=== PATIENT | male | born 1960 | race Caucasian/White ===

== ENCOUNTER 2023-12-07 15:34 | Inpatient (IN) | payer OTHER ==
[2023-12-07] MEDS ORDERED: Calcium Carbonate 500 MG ChewTAB PO PRN (16:07)
[2023-12-07] MEDS ORDERED: Senokot S 8.6-50 MG TAB PO PRN (16:07)
[2023-12-07] MEDS ORDERED: Ondansetron PF 4 MG/2 ML Vial IVP PRN (16:07)
[2023-12-07] MEDS ORDERED: Dextrose 5% in Water 1,000 ML IV PRN (16:09)
[2023-12-07] MEDS ORDERED: Glucagon 1 MG/ML KIT IM PRN (16:09)
[2023-12-07] MEDS ORDERED: HumaLOG 300 UNITS/3 ML VIAL SC PRN ×2 (16:09)
[2023-12-07] MEDS ORDERED: Dextrose 50% Abboject 50 ML SYRINGE SLOW IVP PRN (16:09)
[2023-12-07 16:35] VITALS: BMI 44.9
[2023-12-07] MEDS: Albumin 25% 25 GM (100 mL) BOT IVPB SCH (18:05)
[2023-12-07] MEDS: Insulin Regular, Human 100 UNIT/ML 10 ML VIAL SC PRN ×2 (18:06→21:07)
[2023-12-07] MEDS: Rivaroxaban 10 MG TAB PO SCH (18:07)
[2023-12-07] MEDS: Aripiprazole 10 MG TAB PO SCH (20:56)
[2023-12-07] MEDS: levETIRAcetam 500 MG TAB PO SCH (20:56)
[2023-12-07] MEDS: Carbidopa/Levodopa 25-100 mg Tablet PO SCH (20:56)
[2023-12-07] MEDS ORDERED: Insulin Regular, Human 100 UNIT/ML 10 ML VIAL SC SCH (21:00)
[2023-12-07 21:05] LABS: Vancomycin, Random 18.2 ug/mL (See Comment)
[2023-12-07] MEDS: Insulin NPH Human Isophane 100 UNITS/ML (10 ML VIAL) SC SCH (21:42)
[2023-12-07] MEDS: traMADol HCl 50 MG TAB PO PRN (21:42)
[2023-12-07] MEDS: Vancomycin 1 GM in Premix 1 BAG IVPB SCH (22:54)
[2023-12-08 05:32] LABS: #Basophils 0.05 10x3/uL (0.0-0.2); %Basophils 0.7 % (0.0-1.0); %Eosinophils 3.2 % (0.0-10.0); %Lymphocytes 15.1 % (21.0-51.0); %Monocytes 13.3 % (0.0-10.0); %Neutrophils 67.4 % (42.0-75.0); Hematocrit 37.2 % (42.0-52.0); Hemoglobin 11.7 g/dL (14.0-18.0); Mean Corpuscular HGB CONC 31.5 g/dL (32.0-36.0); Mean Corpuscular Hemoglobin 27.6 pg (27.0-31.0); Mean Corpuscular Volume 87.7 fL (78.0-98.0); Platelet Count 221 10x3/uL (130-400); RBC Distribution Width 17.7 % (11.5-14.5); Red Blood Cell (RBC) Count 4.24 mill/uL (4.70-6.10)
[2023-12-08] MEDS: Levothyroxine Sodium 100 MCG TAB PO SCH (05:36)
[2023-12-08] MEDS: Furosemide 40 MG (4 mL) VIAL SLOW IVP SCH (05:36)
[2023-12-08 05:43] LABS: INR-International Normal Ratio 3.4; Prothrombin Time 34.5 sec (12.0-14.7)
[2023-12-08 05:51] LABS: Vancomycin, Random 19.6 ug/mL (See Comment)
[2023-12-08 07:00] LABS: ALT (SGPT) 6 U/L (8-55); AST (SGOT) 29 U/L (5-34); Albumin 3.6 g/dL (3.4-4.8); Alkaline Phosphatase 107 U/L (40-110); Anion Gap 14 mmol/L (10-20); BUN (Urea Nitrogen) 25 mg/dL (8.4-25.7); Bilirubin, Total 1.3 mg/dL (0.2-1.2); Calc. Creatinine Clearance 118 mL/min (70-130); Calcium 9.5 mg/dL (7.8-10.44); Carbon Dioxide 30 mmol/L (23-31); Chloride 99 mmol/L (98-107); Estimated GFR 87; Globulin 3.8 g/dL (2.4-3.5); Glucose 164 mg/dL (80-115); Magnesium 1.6 mg/dL (1.6-2.6); Potassium 3.6 mmol/L (3.5-5.1); Protein, Total 7.4 g/dL (5.8-8.1); Sodium 139 mmol/L (136-145)
[2023-12-08] MEDS: Empagliflozin 10 MG TAB PO SCH (10:34)
[2023-12-08] MEDS: pyridOXINE 50 MG (B6) TAB PO SCH (10:34)
[2023-12-08] MEDS: DULoxetine 60 MG CAP PO SCH (10:34)
[2023-12-08] MEDS: Thiamine 100 MG TAB PO SCH (10:34)
[2023-12-08] MEDS: Aspirin 81 mg Enteric Coated Tablet PO SCH (10:35)
[2023-12-08] MEDS: Acetaminophen 325 MG TAB PO PRN (14:26)
[2023-12-08] MEDS: Insulin NPH Human Isophane 100 UNITS/ML (10 ML VIAL) SC SCH (14:45)
[2023-12-08 16:50] VITALS: BMI 36.1
[2023-12-08] MEDS ORDERED: Rivaroxaban 10 MG TAB PO SCH (17:00)
[2023-12-08] MEDS: Rivaroxaban 10 MG TAB PO SCH (18:02)
[2023-12-08] MEDS: Vancomycin (BATCH) 1.25 GM in Premix 1 BAG IVPB SCH (23:51)
[2023-12-09 04:42] LABS: Anion Gap 16 mmol/L (10-20); BUN (Urea Nitrogen) 28 mg/dL (8.4-25.7); Calc. Creatinine Clearance 111 mL/min (70-130); Calcium 9.4 mg/dL (7.8-10.44); Carbon Dioxide 29 mmol/L (23-31); Chloride 101 mmol/L (98-107); Estimated GFR 81; Glucose 80 mg/dL (80-115); Potassium 3.8 mmol/L (3.5-5.1); Sodium 142 mmol/L (136-145)
[2023-12-09 04:46] LABS: Vancomycin, Random 24.5 ug/mL (See Comment)
[2023-12-10] MEDS: Vancomycin 1 GM in Premix 1 BAG IVPB SCH
[2023-12-10 04:43] LABS: #Basophils 0.08 10x3/uL (0.0-0.2); %Basophils 0.7 % (0.0-1.0); %Lymphocytes 15.2 % (21.0-51.0); %Monocytes 9.7 % (0.0-10.0); %Neutrophils 70.8 % (42.0-75.0); Hematocrit 44.6 % (42.0-52.0); Hemoglobin 14.3 g/dL (14.0-18.0); Mean Corpuscular HGB CONC 32.1 g/dL (32.0-36.0); Mean Corpuscular Volume 87.3 fL (78.0-98.0); Mean Platelet Volume 11.4 fL (7.4-10.4); Platelet Count 289 10x3/uL (130-400); RBC Distribution Width 17.6 % (11.5-14.5); Red Blood Cell (RBC) Count 5.11 mill/uL (4.70-6.10)
[2023-12-10 04:58] LABS: Vancomycin, Random 24.7 ug/mL (See Comment)
[2023-12-10 04:59] LABS: Anion Gap 20 mmol/L (10-20); BUN (Urea Nitrogen) 29 mg/dL (8.4-25.7); Calc. Creatinine Clearance 122 mL/min (70-130); Calcium 9.5 mg/dL (7.8-10.44); Carbon Dioxide 29 mmol/L (23-31); Chloride 96 mmol/L (98-107); Estimated GFR 90; Glucose 59 mg/dL (80-115); Potassium 4.1 mmol/L (3.5-5.1); Sodium 141 mmol/L (136-145)
[2023-12-10 21:35] VITALS: BP 124/78; TEMP 97.9
== END 2023-12-10 20:10 | DRG 291 ==
LOC: EEVIPCON 15:34 → 2NO 15:34
PROVIDERS: ADMIT Internal Medicine; ATTEND Internal Medicine
DX: I11.0 Hypertensive heart disease with heart failure (principal); I50.33 Acute on chronic diastolic (congestive) heart failure; J96.01 Acute respiratory failure with hypoxia; L03.119 Cellulitis of unspecified part of limb; F25.9 Schizoaffective disorder, unspecified; E03.9 Hypothyroidism, unspecified; E78.5 Hyperlipidemia, unspecified; E11.9 Type 2 diabetes mellitus without complications; I25.10 Atherosclerotic heart disease of native coronary artery without angina pectoris; G40.909 Epilepsy, unspecified, not intractable, without status epilepticus; I48.91 Unspecified atrial fibrillation; Z95.810 Presence of automatic (implantable) cardiac defibrillator
CPT/HCPCS: 36415; 36416; 71045; 80048; 80053; 80202; 81001; 83605; 83735; 83880; 84145; 84484; 85025; 85610; 87040; 93005; 93798; 96374; 96375; 97139; J1815; J1940; J2543; J3370; J3370-JW; J7030; P9047

== ENCOUNTER 2024-04-24 06:45 | Inpatient (IN) | payer OTHER ==
[2024-04-24] MEDS ORDERED: Ondansetron PF 4 MG/2 ML Vial IVP PRN (08:26)
[2024-04-24] MEDS ORDERED: Docusate 100 MG CAP PO PRN (08:34)
[2024-04-24] MEDS ORDERED: Polyethylene Glycol 3350 17 GM Packet PO PRN (08:34)
[2024-04-24] MEDS ORDERED: Dextrose 50% Abboject 50 ML SYRINGE SLOW IVP PRN (08:49)
[2024-04-24] MEDS ORDERED: Glucagon 1 MG/ML KIT IM PRN (08:49)
[2024-04-24] MEDS ORDERED: Dextrose 5% in Water 1,000 ML IV PRN (08:49)
[2024-04-24] MEDS: Thiamine 100 MG TAB PO SCH (09:22)
[2024-04-24] MEDS: Lisinopril 2.5 MG TAB PO SCH (09:23)
[2024-04-24] MEDS: pyridOXINE 50 MG (B6) TAB PO SCH (09:23)
[2024-04-24] MEDS: DULoxetine 60 MG CAP PO SCH (09:23)
[2024-04-24] MEDS: levETIRAcetam 500 MG TAB PO SCH (09:23)
[2024-04-24] MEDS: Carbidopa/Levodopa 25-100 mg Tablet PO SCH (09:23)
[2024-04-24] MEDS: Empagliflozin 10 MG TAB PO SCH (09:23)
[2024-04-24] MEDS: Acetaminophen 325 MG TAB PO PRN (09:23)
[2024-04-24] MEDS: Carvedilol 6.25 MG TAB PO SCH ×2 (09:23→16:47)
[2024-04-24] MEDS: Saccharomyces boulardii 250 MG CAP PO SCH (09:24)
[2024-04-24] MEDS: Famotidine 20 MG TAB PO SCH (09:24)
[2024-04-24 10:38] LABS: Troponin I 0.019 ng/mL (< 0.028)
[2024-04-24] MEDS: Furosemide 40 MG (4 mL) VIAL SLOW IVP SCH (13:01)
[2024-04-24] MEDS: Insulin Lispro 100 UNIT/ML 10 ML VIAL SC PRN (13:02)
[2024-04-24] MEDS: HYDROcodone/Acetaminophen 10/325 mg Tablet PO PRN (16:47)
[2024-04-24] MEDS: Rivaroxaban 10 MG TAB PO SCH (20:12)
[2024-04-24] MEDS: Aspirin 81 mg Enteric Coated Tablet PO SCH (20:12)
[2024-04-24] MEDS: Atorvastatin Calcium 40 MG TAB PO SCH (20:12)
[2024-04-25 04:58] LABS: #Basophils 0.09 10x3/uL (0.0-0.2); %Basophils 1.7 % (0.0-1.0); %Eosinophils 6.9 % (0.0-10.0); %Lymphocytes 13.8 % (21.0-51.0); %Monocytes 9.3 % (0.0-10.0); %Neutrophils 68.1 % (42.0-75.0); Hematocrit 38.7 % (42.0-52.0); Mean Corpuscular Hemoglobin 28.6 pg (27.0-31.0); Mean Corpuscular Volume 92.1 fL (78.0-98.0); Mean Platelet Volume 10.4 fL (7.4-10.4); Platelet Count 297 10x3/uL (130-400); RBC Distribution Width 16.9 % (11.5-14.5)
[2024-04-25 05:05] LABS: Anion Gap 11 mmol/L (10-20); BUN (Urea Nitrogen) 21 mg/dL (8.4-25.7); Calc. Creatinine Clearance 125 mL/min (70-130); Calcium 8.6 mg/dL (7.8-10.44); Carbon Dioxide 24 mmol/L (23-31); Chloride 104 mmol/L (98-107); Estimated GFR 93; Glucose 118 mg/dL (80-115); Potassium 3.9 mmol/L (3.5-5.1); Sodium 135 mmol/L (136-145)
[2024-04-25] MEDS: Levothyroxine 175 MCG TAB PO SCH (05:19)
[2024-04-25 05:32] LABS: Free T4 (Free Thyroxine) Less than 0.42 ng/dL (0.70-1.48); Thyroid Stimulating Hormone 73.6671 uIU/mL (0.35-4.94)
[2024-04-25] MEDS: Ferrous Sulfate 325 MG TAB PO SCH (08:52)
[2024-04-25] MEDS: Spironolactone 25 MG TAB PO SCH (08:54)
[2024-04-25] MEDS: AcetaZOLAMIDE ER 500 MG CAP PO SCH ×2 (14:03→21:28)
[2024-04-25 18:21] VITALS: BMI 34.5
[2024-04-26 04:55] LABS: #Basophils 0.08 10x3/uL (0.0-0.2); %Basophils 1.3 % (0.0-1.0); %Eosinophils 4.8 % (0.0-10.0); %Lymphocytes 13.6 % (21.0-51.0); %Neutrophils 71.7 % (42.0-75.0); Hematocrit 41.8 % (42.0-52.0); Mean Corpuscular HGB CONC 31.1 g/dL (32.0-36.0); Mean Corpuscular Hemoglobin 28.2 pg (27.0-31.0); Mean Corpuscular Volume 90.7 fL (78.0-98.0); Mean Platelet Volume 10.4 fL (7.4-10.4); Platelet Count 335 10x3/uL (130-400); RBC Distribution Width 16.7 % (11.5-14.5); Red Blood Cell (RBC) Count 4.61 mill/uL (4.70-6.10)
[2024-04-26 05:20] LABS: Anion Gap 12 mmol/L (10-20); BUN (Urea Nitrogen) 23 mg/dL (8.4-25.7); Calc. Creatinine Clearance 99 mL/min (70-130); Calcium 8.8 mg/dL (7.8-10.44); Carbon Dioxide 27 mmol/L (23-31); Chloride 100 mmol/L (98-107); Estimated GFR 75; Glucose 163 mg/dL (80-115); Potassium 3.5 mmol/L (3.5-5.1); Sodium 135 mmol/L (136-145)
[2024-04-26 14:06] VITALS: BMI 33.0
[2024-04-27 05:06] LABS: #Basophils 0.06 10x3/uL (0.0-0.2); %Basophils 1.1 % (0.0-1.0); %Eosinophils 3.9 % (0.0-10.0); %Lymphocytes 17.5 % (21.0-51.0); %Monocytes 9.5 % (0.0-10.0); %Neutrophils 67.3 % (42.0-75.0); Hematocrit 40.7 % (42.0-52.0); Hemoglobin 13.1 g/dL (14.0-18.0); Mean Corpuscular HGB CONC 32.2 g/dL (32.0-36.0); Mean Platelet Volume 10.3 fL (7.4-10.4); Platelet Count 338 10x3/uL (130-400); RBC Distribution Width 16.8 % (11.5-14.5); Red Blood Cell (RBC) Count 4.52 mill/uL (4.70-6.10)
[2024-04-27 05:17] LABS: Anion Gap 12 mmol/L (10-20); BUN (Urea Nitrogen) 25 mg/dL (8.4-25.7); Calc. Creatinine Clearance 82 mL/min (70-130); Calcium 8.7 mg/dL (7.8-10.44); Carbon Dioxide 26 mmol/L (23-31); Chloride 103 mmol/L (98-107); Estimated GFR 62; Glucose 188 mg/dL (80-115); Potassium 3.8 mmol/L (3.5-5.1); Sodium 137 mmol/L (136-145)
[2024-04-27] MEDS ORDERED: Lidocaine 4% Patch TD SCH (10:45)
[2024-04-27] MEDS: Methocarbamol 500 MG TAB PO PRN (13:06)
[2024-04-27] MEDS: Lidocaine 4% Patch TD SCH (15:37)
[2024-04-27] MEDS: predniSONE 20 MG TAB PO SCH (17:44)
[2024-04-27] MEDS: Transdermal Patch Removal TOP SCH (22:23)
[2024-04-28 19:58] VITALS: BP 95/53; TEMP 98.3
== END 2024-04-28 20:35 | DRG 291 ==
LOC: 2NO 06:48 → EEVIPCON 06:48
PROVIDERS: ADMIT Internal Medicine; ATTEND Internal Medicine
DX: I11.0 Hypertensive heart disease with heart failure (principal); I50.33 Acute on chronic diastolic (congestive) heart failure; I48.19 Other persistent atrial fibrillation; M48.57XA Collapsed vertebra, not elsewhere classified, lumbosacral region, initial encounter for fracture; I25.10 Atherosclerotic heart disease of native coronary artery without angina pectoris; F25.9 Schizoaffective disorder, unspecified; G20.A1 Parkinson's disease without dyskinesia, without mention of fluctuations; E03.9 Hypothyroidism, unspecified; E78.5 Hyperlipidemia, unspecified; R79.89 Other specified abnormal findings of blood chemistry; G40.909 Epilepsy, unspecified, not intractable, without status epilepticus; D64.9 Anemia, unspecified; I87.2 Venous insufficiency (chronic) (peripheral); N43.3 Hydrocele, unspecified; N40.0 Benign prostatic hyperplasia without lower urinary tract symptoms; E11.9 Type 2 diabetes mellitus without complications; Z95.5 Presence of coronary angioplasty implant and graft; Z95.810 Presence of automatic (implantable) cardiac defibrillator; Z79.899 Other long term (current) drug therapy; Z79.84 Long term (current) use of oral hypoglycemic drugs; Z79.82 Long term (current) use of aspirin
CPT/HCPCS: 36415; 36416; 71045; 72100; 76870; 80048; 80053; 81001; 83735; 83880; 84439; 84443; 84484; 85025; 93005; 93306; 93976; 96374; 96375; 97139; J1815; J1940; J7512

== ENCOUNTER 2024-06-08 23:30 | Emergency (ER) | payer OTHER ==
[2024-06-09 00:32] LABS: #Basophils 0.08 10x3/uL (0.0-0.2); %Eosinophils 3.2 % (0.0-10.0); %Lymphocytes 11.8 % (21.0-51.0); %Monocytes 9.8 % (0.0-10.0); %Neutrophils 73.7 % (42.0-75.0); Hematocrit 39.9 % (42.0-52.0); Hemoglobin 12.3 g/dL (14.0-18.0); Mean Corpuscular HGB CONC 30.8 g/dL (32.0-36.0); Mean Corpuscular Hemoglobin 28.9 pg (27.0-31.0); Mean Corpuscular Volume 93.9 fL (78.0-98.0); Mean Platelet Volume 10.6 fL (7.4-10.4); Platelet Count 268 10x3/uL (130-400); RBC Distribution Width 16.8 % (11.5-14.5); Red Blood Cell (RBC) Count 4.25 mill/uL (4.70-6.10)
[2024-06-09 00:48] LABS: Bacteria/HPF None Seen HPF (None Seen); Bilirubin Negative (Negative); Blood, Urine Negative (Negative); CAUTI Indications for Culture Pelvic or flank pain; Clarity Clear (Clear); Glucose, Urine (Dipstick) 30 mg/dL (Negative); Ketone, Urine Negative (Negative); Leukocyte Negative Leu/uL (Negative); Nitrite Negative (Negative); Protein, Urine (Dipstick) 100 mg/dL (Neg-Trace); Specific Gravity, Urine 1.027 (1.002-1.036); Squamous Epithelial 0-3 HPF (0-3); Urobilinogen 6 mg/dL (Less than 2); WBC/HPF 0-3 HPF (0-3)
[2024-06-09 00:49] LABS: ALT (SGPT) 9 U/L (8-55); AST (SGOT) 39 U/L (5-34); Albumin 3.3 g/dL (3.4-4.8); Alkaline Phosphatase 186 U/L (40-110); Anion Gap 15 mmol/L (10-20); BUN (Urea Nitrogen) 27 mg/dL (8.4-25.7); Calc. Creatinine Clearance 0 mL/min (70-130); Calcium 8.7 mg/dL (7.8-10.44); Carbon Dioxide 21 mmol/L (23-31); Chloride 107 mmol/L (98-107); Estimated GFR 86; Globulin 3.7 g/dL (2.4-3.5); Glucose 266 mg/dL (80-115); Lipase 42 U/L (8-78); Potassium 4.9 mmol/L (3.5-5.1); Sodium 138 mmol/L (136-145)
[2024-06-09 00:51] LABS: Urine Culture Reflex No No
[2024-06-09 00:52] LABS: Troponin I 0.012 ng/mL (< 0.028)
[2024-06-09] MEDS ORDERED: Furosemide 40 MG (4 mL) VIAL ONE (01:46)
[2024-06-09] MEDS ORDERED: dilTIAZem 25 MG/5 ML VIAL ONE (01:57)
[2024-06-09] MEDS ORDERED: Aspirin Chewable 81 MG TAB ONE (07:47)
== END 2024-06-09 11:15 | disposition short-term general hospital (02) ==
LOC: ERS 23:30 → EEVIPCON 23:30 → ERS 06-09 11:15
DX: I11.0 Hypertensive heart disease with heart failure (principal); I50.9 Heart failure, unspecified; N50.89 Other specified disorders of the male genital organs; I48.91 Unspecified atrial fibrillation; E11.9 Type 2 diabetes mellitus without complications; E03.9 Hypothyroidism, unspecified; I25.10 Atherosclerotic heart disease of native coronary artery without angina pectoris; G20.A1 Parkinson's disease without dyskinesia, without mention of fluctuations; I48.92 Unspecified atrial flutter; G40.909 Epilepsy, unspecified, not intractable, without status epilepticus; E11.40 Type 2 diabetes mellitus with diabetic neuropathy, unspecified; Z79.01 Long term (current) use of anticoagulants; Z86.73 Personal history of transient ischemic attack (TIA), and cerebral infarction without residual deficits; Z95.0 Presence of cardiac pacemaker
CPT/HCPCS: 36415; 51702; 71045; 76870; 80053; 81001; 83605; 83690; 83880; 84484; 85025; 87040; 93005; 93976; 96374; 96375; J1940